=== PATIENT | female | born 1970 | race Caucasian/White ===

== ENCOUNTER 2018-06-28 14:22 | Emergency (ER) | END 2018-06-28 16:39 | disposition home or self-care (01) ==

== ENCOUNTER 2018-11-30 18:17 | Emergency (ER) | payer OTHER ==
[~2018-11-30] VITALS: Ht 165.1 cm; Wt 92.3 kg
[~2018-11-30 18:17] MED LIST: ACET-2047 PO; AMLO-147 PO; AZIT250T PO; BENZ-6 PO; CETI1TAB6 PO; FER325 PO; IBUP-1561 PO; LEVO75TA PO; LOSA50TA7 PO
[2018-11-30 18:38] VITALS: Ht 165.1 cm; Wt 92.3 kg
[2018-12-01] MEDS ORDERED: morphine 4 MG/ML VIAL IV STA (00:08)
[2018-12-01] MEDS ORDERED: ONDANSETRON 4 MG INJ IV STA (00:08)
[2018-12-01] MEDS ORDERED: SOD CHLORIDE 0.9% 1,000 ML IV STA (00:08)
--- NOTE | 2018-12-01 02:47 | ERD ---
ER Documentation Chief Complaint Chief Complaint abd pain with n/v since this morning HPI This is a very pleasant 40-year-old female with abdominal pain nausea vomiting since this morning. Pain is mild to moderate intensity with no exacerbating relieving factors. Denies any fevers or chills. Denies any other current issues. ROS All systems reviewed and are negative except as per history of present illness. Medications Home Meds Reported Medications Amlodipine Besylate* (Amlodipine Besylate*) 10 Mg Tablet, 5 MG PO DAILY, #30 TAB 10/16/16 Levothyroxine Sodium (Levo-T) 75 Mcg Tablet, 75 MCG PO DAILY, #90 10/15/16 Losartan Potassium* (Losartan Potassium*) 50 Mg Tablet, 50 MG PO DAILY, #30 10/15/16 Discontinued Reported Medications Ferrous Sulfate* (Ferrous Sulfate*) 325 Mg Tabec, 325 MG PO BID, #90 10/15/16 Discontinued Scripts Benzonatate* (Tessalon Perle*) 100 Mg Capsule, 100 MG PO Q8H PRN for COUGH, #20 CAP Prov:ARTHUR PADRON PA-C 06/28/18 Cetirizine/Pseudoephedrine (Zyrtec-D) 5-120 Mg Tab.er.12h, 1 TAB PO Q12, #30 TAB Prov:ARTHUR PADRON PA-C 06/28/18 Ibuprofen* (Motrin*) 400 Mg Tab, 400 MG PO Q6H PRN for PAIN AND OR ELEVATED TEMP, #30 TAB Prov:ARTHUR PADRON PA-C 06/28/18 Acetaminophen* (Acetaminophen*) 650 Mg Tablet, 650 MG PO Q6H PRN for PAIN AND OR ELEVATED TEMP, #30 TAB Prov:ARTHUR PADRON PA-C 06/28/18 Azithromycin* (Zithromax*) 250 Mg Tablet, 250 MG PO .UMER DIRECTED, #6 TAB TAKE 500 MG (2 TABS) THE FIRST DAY THEN 250 MG (1 TAB) DAYS 2-5 Prov:ARTHUR PADRON PA-C 06/28/18 Allergies Allergies: Coded Allergies: No Known Allergy (Unverified , 11/30/18) PMhx/Soc History of Surgery: Yes (APPENDECTOMY, tubal ligation) Anesthesia Reaction: No Hx Neurological Disorder: No Hx Respiratory Disorders: No Hx Cardiac Disorders: Yes (HTN) Hx Psychiatric Problems: No Hx Miscellaneous Medical Probl: Yes (UTERINE FIBROID, ANEMIA, OBESITY) Hx Alcohol Use: No Hx Substance Use: No Hx Tobacco Use: No Smoking Status: Never smoker Physical Exam Vitals Vital Signs Date Temp Pulse Resp B/P (MAP) Pulse Ox O2 O2 Flow FiO2 Time Delivery Rate 12/01/18 73 16 116/63 97 Room Air 01:45 (80) 11/30/18 98.0 92 19 147/83 99 Room Air 23:45 (104) 11/30/18 99.8 82 16 162/81 99 18:38 (108) Physical Exam Const: No acute distress Head: Atraumatic Eyes: Normal Conjunctiva ENT: Normal External Ears, Nose and Mouth. Neck: Full range of motion. No meningismus. Resp: Clear to auscultation bilaterally Cardio: Regular rate and rhythm, no murmurs Abd: Soft, non tender, non distended. Normal bowel sounds Skin: No petechiae or rashes Back: No midline or flank tenderness Ext: No cyanosis, or edema Neur: Awake and alert Psych: Normal Mood and Affect Result Diagram: 11/30/18 2351 11/30/18 2351 Results 24 hrs Laboratory Tests Test 11/30/18 23:51 White Blood Count 12.1 10^3/ul Red Blood Count 4.84 10^6/ul Hemoglobin 14.3 g/dl Hematocrit 43.7 % Mean Corpuscular Volume 90.3 fl Mean Corpuscular Hemoglobin 29.5 pg Mean Corpuscular Hemoglobin Concent 32.7 g/dl Red Cell Distribution Width 12.9 % Platelet Count 209 10^3/UL Mean Platelet Volume 12.8 fl Immature Granulocytes % 0.300 % Neutrophils % 89.9 % Lymphocytes % 5.9 % Monocytes % 3.5 % Eosinophils % 0.2 % Basophils % 0.2 % Nucleated Red Blood Cells % 0.0 /100WBC Immature Granulocytes # 0.040 10^3/ul Neutrophils # 10.9 10^3/ul Lymphocytes # 0.7 10^3/ul Monocytes # 0.4 10^3/ul Eosinophils # 0.0 10^3/ul Basophils # 0.0 10^3/ul Nucleated Red Blood Cells # 0.0 10^3/ul Urine Color RED Urine Clarity CLOUDY Urine pH 5.0 Urine Specific Butler 1.030 Urine Ketones 1+ mg/dL Urine Nitrite NEGATIVE mg/dL Urine Bilirubin NEGATIVE mg/dL Urine Urobilinogen NEGATIVE mg/dL Urine Leukocyte Esterase NEGATIVE Nydia/ul Urine Microscopic RBC > 182 /HPF Urine Microscopic WBC 11 /HPF Urine Squamous Epithelial Cells MODERATE /HPF Urine Bacteria FEW /HPF Urine Mucus FEW /HPF Urine Hemoglobin 3+ mg/dL Urine Glucose NEGATIVE mg/dL Urine Total Protein 3+ mg/dl Urine Test NEGATIVE Sodium Level 141 mmol/L Potassium Level 3.7 mmol/L Chloride Level 103 mmol/L Carbon Dioxide Level 26 mmol/L Anion Gap 12 Blood Urea Nitrogen 18 mg/dl Creatinine 0.69 mg/dl Est Glomerular Filtrat Rate mL/min > 60 mL/min Glucose Level 140 mg/dl Calcium Level 9.4 mg/dl Total Bilirubin 0.4 mg/dl Direct Bilirubin 0.00 mg/dl Indirect Bilirubin 0.4 mg/dl Aspartate Amino Transf (AST/SGOT) 26 IU/L Alanine Aminotransferase (ALT/SGPT) 33 IU/L Alkaline Phosphatase 72 IU/L Total Protein 7.5 g/dl Albumin 4.5 g/dl Globulin 3.00 g/dl Albumin/Globulin Ratio 1.50 Lipase 62 U/L Current Medications Medications Dose Sig/Abel Start Time Status Last (Trade) Ordered Route PRN Stop Time Admin Dose Reason Admin Sodium 1,000 ml @ Q1H STAT 12/01/18 DC 12/01/18 Chloride 1,000 mls/hr IV 00:08 12/01/18 00:22 01:07 Morphine 4 mg ONCE STAT 12/01/18 DC 12/01/18 Sulfate IV 00:08 12/01/18 00:21 (morphine) 00:10 Ondansetron 4 mg ONCE STAT 12/01/18 DC 12/01/18 HCl (Zofran IV 00:08 12/01/18 00:22 Inj) 00:10 Procedures/MDM Medical decision makin-year-old female with abdominal pain of uncertain nonspecific etiology. At this point patient is clinically stable for outpatient management. She will be discharged home. Advised follow-up in 8 hours for serial abdominal exams. Departure Diagnosis: Primary Impression: Abdominal pain Abdominal location: unspecified location Qualified Codes: R10.9 - Unspecified abdominal pain Condition: Stable NICOLASA FAGAN Dec 01, 2018 02:47
[2018-12-01] MEDS ORDERED: ONDA4TAB14 PO (02:48)
[2018-12-01] MEDS ORDERED: TRAM50TA2 PO (02:48)
[2018-12-01 03:08] VITALS: BP 121/64; PULSE 72; RESP 18
== END 2018-12-01 03:13 | disposition home or self-care (01) ==
LOC: E/R 18:17
DX: R10.9 Unspecified abdominal pain (principal); R11.2 Nausea with vomiting, unspecified; I10 Essential (primary) hypertension; E66.9 Obesity, unspecified; Z68.33 Body mass index [BMI] 33.0-33.9, adult
CPT/HCPCS: 36415; 71045; 74176; 80053; 81001; 83690; 84703; 85025; 96374; 96375; J2270; J2405; J7030; Z7502

== ENCOUNTER 2019-05-03 22:19 | Emergency (ER) | payer OTHER ==
[~2019-05-03] VITALS: Ht 160 cm; Wt 92.0 kg
[~2019-05-03 22:19] MED LIST changes: -ACET-2047 PO; -AZIT250T PO; -BENZ-6 PO; -CETI1TAB6 PO; -FER325 PO; -IBUP-1561 PO; +LOSA50TA14 PO; -LOSA50TA7 PO; +ONDA4TAB14 PO; +TRAM50TA2 PO
[2019-05-03 22:30] VITALS: Ht 160 cm; Wt 92.0 kg
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
[2019-05-04] MEDS ORDERED: IBUPROFEN 200 MG TAB PO ONE (01:00)
[2019-05-04] MEDS ORDERED: LORAZEPAM 0.5 MG TAB PO ONE (01:00)
[2019-05-04] MEDS ORDERED: ACETAMINOPHEN 325 MG TAB PO ONE (01:00)
[2019-05-04] MEDS ORDERED: LORA-441 PO (01:22)
[2019-05-04] MEDS ORDERED: ACET325T33 PO (01:22)
[2019-05-04] MEDS ORDERED: IBUP-1561 PO (01:22)
[2019-05-04 02:39] VITALS: BP 167/85; PULSE 70; RESP 17
== END 2019-05-04 02:39 | disposition home or self-care (01) ==
LOC: FTE 22:19
DX: M54.2 Cervicalgia (principal)
CPT/HCPCS: 72040; Z7502; Z7610